=== PATIENT | female | born 1965 | race Two or more races ===

== ENCOUNTER 2018-03-19 14:30 | Outpatient (CLI) | payer OTHER ==
[~2018-03-19 14:30] MED LIST: NKM
== END 2018-03-19 15:00 | disposition home or self-care (01) ==
LOC: PAN 14:30
DX: K29.60 Other gastritis without bleeding (principal); B96.81 Helicobacter pylori [H. pylori] as the cause of diseases classified elsewhere
CPT/HCPCS: 83013